=== PATIENT | male | born 1960 | race Caucasian/White ===

== ENCOUNTER 2018-03-15 06:23 | Day surgery (SDC) | payer OTHER ==
[2018-03-15] MEDS ORDERED: ATROPINE SULFATE 1 MG/10 ML SYR IVP ONE (06:26)
[2018-03-15] MEDS ORDERED: NS 1,000 ML IV ONE (06:26)
--- NOTE | 2018-03-15 06:44 | CPEKG ---
Heart Rate: 75 RR Interval: 800 QRSD Interval: 72 QT Interval: 380 QTC Interval: 425 QRS [place]: 14 T Wave [place]: 32 EKG Severity - ABNORMAL ECG - EKG Impression: ATRIAL FIBRILLATION, V-RATE 60-89 Electronically Signed By: Ben Pryor 15-Mar-2018 07:34:46
[2018-03-15 07:10] LABS: INR 1.06 (0.83-1.16)
--- NOTE | 2018-03-15 07:47 | PDANEPAE ---
ANE Past Medical History - Cardiovascular History Hx Arrhythmias: Yes - Pulmonary History Hx Sleep Apnea: No ANE Review of Systems Review of Systems: ANE Patient History - Allergies Allergies/Adverse Reactions: No Known Allergies Allergy (Verified 03/14/18 16:51) - Home Medications Home Medications: Aspirin 325 mg PO DAILY 03/15/18 [Last Taken 03/15/18 06:00] Belsomra 20 mg PO HS PRN 03/15/18 [Last Taken 03/14/18 21:00] Crestor 5 mg PO DAILY 03/15/18 [Last Taken 03/14/18 21:00] Eliquis 5 mg pe PO Q12 03/15/18 [Last Taken 03/15/18 06:00] Fish Oil Concentrate Softgel 1,000 mg PO DAILY 03/15/18 [Last Taken 03/14/18 21: 00] Lunesta 3 mg PO HS PRN 03/15/18 [Last Taken Unknown] Niacin 1,000 mg PO DAILY 03/15/18 [Last Taken 03/14/18 06:00] Quetiapine Fumarate 100 mg PO HS 03/15/18 [Last Taken 03/14/18 21:00] Toprol Xl 25 mg PO DAILY 03/15/18 [Last Taken 03/15/18 06:00] Vyvanse 20 mg PO DAILY 03/15/18 [Last Taken 03/14/18 06:00] - Smoking Hx Smoking Status: Never smoked ANE Labs/Vital Signs - Labs Result Diagrams: 03/15/18 06:50 03/15/18 06:50 - Vital Signs Height: 186.2 cm Weight: 93.8 kg ANE Physical Exam - Airway Mallampati Score: Class 2 - ASA Status ASA Status: III ANE Anesthesia Plan Total IV Anesthesia: Yes
[2018-03-15] MEDS ORDERED: PROPOFOL 200 MG/20 ML VIAL ONE (07:49)
--- NOTE | 2018-03-15 07:54 | PDHPUP ---
History & Physical Update H&P update statement: This history and physical update is based on an assessment of the patient which was completed after admission or registration (within 24 hours), but prior to the surgery/procedure. H&P update: H&P reviewed & patient examined, no change in patient's condition since H&P completed
[2018-03-15] MEDS ORDERED: NS 500 ML IV PRN (08:13)
[2018-03-15] MEDS ORDERED: fentaNYL 100 MCG/2 ML INJ IVP PRN (08:13)
[2018-03-15] MEDS ORDERED: NALOXONE HCL 0.4 MG/ML INJ IVP PRN (08:13)
[2018-03-15] MEDS ORDERED: ONDANSETRON 4 MG/2 ML VIAL IVP PRN (08:13)
--- NOTE | 2018-03-15 08:14 | POSTANESTH ---
Post Anesthetic Evaluation Cardiovascular Status: Normal, Stable Respiratory Status: Normal, Stable Level of Consciousness/Mental Status: Mildly Sleepy, Arousable Pain Control: Adequate, Prn Tx Ordered Nausea/Vomiting Control: Adequate, Prn Tx Ordered Complications Possibly Related to Anesthesia: None Noted
--- NOTE | 2018-03-15 08:20 | CPEKG ---
Heart Rate: 75 RR Interval: 800 P-R Interval: 152 QRSD Interval: 78 QT Interval: 392 QTC Interval: 438 P [place]: 41 QRS [place]: 10 T Wave [place]: 31 EKG Severity - NORMAL ECG - EKG Impression: SINUS RHYTHM Electronically Signed By: Ben Pryor 16-Mar-2018 09:27:18
== END 2018-03-15 09:48 | disposition home or self-care (01) ==
LOC: FCATH 06:23
PROVIDERS: ATTEND Internal Medicine Cardiovascular Disease
DX: I48.91 Unspecified atrial fibrillation (principal); I25.10 Atherosclerotic heart disease of native coronary artery without angina pectoris; R55 Syncope and collapse; R53.83 Other fatigue; E78.5 Hyperlipidemia, unspecified; G47.00 Insomnia, unspecified; Z79.01 Long term (current) use of anticoagulants; Z79.82 Long term (current) use of aspirin
CPT/HCPCS: J2704

== ENCOUNTER 2018-07-23 06:59 | Observation (INO) | payer OTHER ==
[2018-07-23] MEDS ORDERED: NS 1,000 ML IV ONE (07:02)
[2018-07-23 07:38] LABS: PLATELET COUNT 191 10^3/uL (150-400)
[2018-07-23 07:46] LABS: INR 0.96 (0.83-1.16)
[2018-07-23] MEDS ORDERED: LIDOCAINE 1% 300 MG/30 ML SDV ONE (08:02)
[2018-07-23] MEDS ORDERED: HEPARIN/DEXTROSE 25,000 UNIT/500 ML BAG ONE (08:02)
[2018-07-23] MEDS ORDERED: HEPARIN 10,000 UNIT/10 ML MDV (1,000 UNIT/ML) ONE (08:02)
[2018-07-23] MEDS ORDERED: BUPIVACAINE 0.75% 10 ML SDV ONE (08:03)
[2018-07-23] MEDS ORDERED: ISOPROTERENOL HCL/D5W 0.2 MG/50 ML BAG IV ONE (08:03)
[2018-07-23] MEDS ORDERED: IOPAMIDOL (ISOVUE-300) 100 ML BTL ONE (08:04)
[2018-07-23] MEDS ORDERED: MIDAZOLAM 2 MG/2 ML VIAL IVP ONE (08:27)
--- NOTE | 2018-07-23 08:27 | PDANEPAE ---
ANE History of Present Illness here for EPS and PVI for AF ANE Past Medical History - Cardiovascular History Hx Arrhythmias: Yes Hx Chest Pain: No Hx Coronary Artery / Peripheral Vascular Disease: No Hx CHF / Valvular Disease: No Hx Palpitations: No - Pulmonary History Hx COPD: No Hx Asthma/Reactive Airway Disease: No Hx Recent Upper Respiratory Infection: No Hx Oxygen in Use at Home: No Hx Sleep Apnea: No - Neurologic History Hx Cerebrovascular Accident: No Hx Seizures: No Hx Dementia: No - Endocrine History Hx Diabetes: No Hypothyroid: No Hyperthyroid: No Obesity: no - Renal History Hx Renal Disorders: No ANE Review of Systems Review of systems is: negative Review of Systems: - Exercise capacity Exercise capacity: >=4 METS ANE Patient History - Allergies Allergies/Adverse Reactions: No Known Allergies Allergy (Verified 03/14/18 16:51) - Home Medications Home medications: home medication list seen and reviewed Home Medications: Apixaban [Eliquis] 5 mg PO BID 03/15/18 [Last Taken 07/20/18 07:00] Eszopiclone [Lunesta] 3 mg PO HS PRN 03/15/18 [Last Taken Unknown] Lisdexamfetamine Dimesylate [Vyvanse] 20 mg PO DAILY 03/15/18 [Last Taken 07:00] Metoprolol Succinate Xr [Toprol Xl 50 mg (*)] 50 mg PO DAILY 03/15/18 [Last Taken 07/20/18 07:00] Niacin [Niacin 500 mg (*)] 500 mg PO HS 03/15/18 [Last Taken 03/14/18 06:00] QUEtiapine FUMARATE [Seroquel 100 mg (*)] 100 mg PO HS 03/15/18 [Last Taken 21:00] Rosuvastatin Calcium [Crestor] 5 mg PO HS 03/15/18 [Last Taken 07/22/18 21:00] Herbals/Supplements -Info Only 1 ea PO DAILY 05/16/18 [Last Taken Unknown] [place]-3 Fatty Acids [Fish Oil 1000 mg (*)] 1,000 mg PO DAILY 07/16/18 [Last Taken 07/21/18 07:00] Omeprazole 20 mg PO DAILY 07/16/18 [Last Taken 07/22/18 07:00] buPROPion [Wellbutrin 100mg (*)] 200 mg PO BID 07/16/18 [Last Taken 07/22/18 13: 30] - NPO status NPO Status: no food or drink >8 hours - Smoking Hx Smoking Status: Never smoked ANE Labs/Vital Signs - Labs Result Diagrams: 07/23/18 07:30 07/23/18 07:30 - Vital Signs Vital Signs: reviewed preoperatively; see RN documention for details Height: 187.96 cm Weight: 90.718 kg ANE Physical Exam - Airway Neck exam: FROM Mallampati Score: Class 1 Mouth exam: normal dental/mouth exam - Pulmonary Pulmonary: no respiratory distress - Cardiovascular Cardiovascular: regular rate and rhythym - ASA Status ASA Status: II ANE Anesthesia Plan Anesthesia Plan: general endotracheal anesthesia
[2018-07-23] MEDS ORDERED: MIDAZOLAM 2 MG/2 ML VIAL ONE (08:38)
--- NOTE | 2018-07-23 08:42 | PDGENHP ---
History & Physical Chief Complaint: symptomatic afib Relevant Physical Exam: s1s2 rrr cta ao3 Cardiorespiratory Assessment: symptomatic afib for ablation
[2018-07-23] MEDS ORDERED: fentaNYL 100 MCG/2 ML INJ ONE ×2 (08:53→10:13)
[2018-07-23] MEDS ORDERED: PROPOFOL/EMULSION 500 MG/50 ML BOTTLE IV ONE ×2 (08:54→10:08)
[2018-07-23] MEDS ORDERED: PROPOFOL 200 MG/20 ML VIAL ONE (09:09)
[2018-07-23] MEDS ORDERED: PROTAMINE SULFATE 50 MG/5 ML VIAL IVP ONE (10:42)
--- NOTE | 2018-07-23 10:49 | EPPROC ---
Electrophysiology Procedure Note: ELECTROPHYSIOLOGIC STUDY AND BALLOON-CATHETER MEDIATED CRYOABLATION FOR PAROXYSMAL ATRIAL FIBRILLATION Procedures performed: 98465-24 EP evaluation with RA/RV/LA pace/record, with arrhythmia induction 90610-52 EP evaluation with RA/RV pace record, insert/reposition catheter, with arrhythmia induction 05092 Atrial fibrillation ablation Intracardiac echocardiogram Transseptal puncture Fluoroscopy INDICATION: Paroxysmal atrial fibrillation PROCEDURE: The patient arrived in the Electrophysiology Laboratory in the fasting state. The right groin, left groin and right infraclavicular area were prepped and draped in the usual sterile fashion. Anesthesiologist administered general anesthesia Dr. Brionna Moran . All catheters were placed percutaneously using the Seldinger technique and advanced into position under fluoroscopic guidance. One #7 Macedonian deflectable octapolar electrode catheter was placed in the His-bundle position via the left femoral vein (2mm spacing, IVC electrode for unipolar recordings). This catheter was placed in the coronary sinus after transseptal puncture and later placed in the SVC-R subclavian vein junction to pace the right phrenic nerve during right pulmonary vein ablation. One #8 [place] AcuNaV ultrasound catheter was placed in the left femoral vein and advanced into the right atrium. One #4 [place]onian sheath was inserted into the left femoral artery via percutaneous technique and used for continuous arterial blood pressure monitoring and intermittent ACT determination. Programmed stimulation was performed from the right atrium, left atrium (CS) and right ventricle. There was no evidence of AV accessory pathway. Intracardiac echo evaluation of the left atrium and pulmonary veins was performed. Baseline ACT was drawn and heparin bolus was administered and heparin drip was started prior to transseptal puncture. ACT was checked every 15 minutes and maintained in the range of 350-400 seconds. One 14Fr short sheath was placed in the right femoral vein. One 8Fr SL1 sheath was advanced into the right atrium via the 14Fr short sheath. Transseptal puncture was performed under intracardiac ultrasound, fluoroscopic and hemodynamic guidance placing the sheath into the left atrium. Fortine RF needle ( C0 curve) was used. The mean left atrial pressure was 10 mmHg. 3D map of left atrial and pulmonary veins was performed using PentaRay catheter. The SL1 sheath was exchanged for a Medtronic Flexcath sheath using an Amplatz stiff guide wire. A 28 mm Cryoballoon catheter with a 20 mm Achieve catheter was placed via the sheath into the left atrium. Intracardiac ultrasound and PV angiograms were used to assist in placing the mapping catheter at the antrum of the pulmonary veins. All pulmonary veins were isolated successfully using cryoballoon ablation using freeze/thaw/freeze cycles at 2-3-minute intervals, with good [id number] of isolation. Coumadin ridge/Ligament of [place] region was ablated. Pre and post pulmonary vein recordings were measured on the spiral Achieve catheter to ensure complete pulmonary vein isolation. During the right-sided ablation, phrenic nerve pacing was performed to assess the phrenic nerve strength ( manually and with ICE visualization of liver movement during phrenic capture) and the phrenic nerve was intact throughout the right-sided ablation and at the end of the procedure. An esophageal temperature probe (12 electrode, Circa) was placed by the anesthesiologist at the beginning of the procedure. Esophageal temperature was monitored continuously and cryoablation was interrupted if esophageal temperature was <15 C. Cryoapplications 5 total cryoablation time 900 s. ICE imaging post ablation was consistent with pre ablation imaging with no changes noted, moreover there was no left atrial/left ventricular thrombus and no pericardial effusion. The catheters were withdrawn. Protamine was given. The sheaths were removed and subcutaneous pursestring suture and manual pressure was used for hemostasis. The patient was recovered from anesthesia. There were no complications. The patient was arousable and moving all four extremities at the end of the procedure. CONCLUSIONS: 1. Paroxysmal atrial fibrillation. 2. Successful pulmonary vein isolation procedure (left and right pulmonary vein antrum) using cryoballoon ablation. 3. No apparent complications. Patient Problems: Problems Problem Status Onset Atrial fibrillation Acute
[2018-07-23] MEDS ORDERED: ZOLPIDEM TARTRATE 5 MG TAB PO PRN (11:18)
[2018-07-23] MEDS ORDERED: KETOROLAC 15 MG/1 ML SDV IVP ONE (12:00)
[2018-07-23] MEDS: buPROPion 100 MG TAB PO SCH ×2 (12:35→21:12)
[2018-07-23] MEDS: APIXABAN 5 MG TAB PO SCH ×2 (17:04→19:02)
--- NOTE | 2018-07-23 17:47 | CPEKG ---
Test Reason : OPEN Blood Pressure : / mmHG Vent. Rate : 073 BPM Atrial Rate : 071 BPM P-R Int : 142 ms QRS Dur : 080 ms QT Int : 386 ms P-R-T Axes : 038 038 069 degrees QTc Int : 426 ms Sinus rhythm Confirmed by oTrey Majano ([id number]) on 07/23/2018 5:47:40 PM Referred By: Confirmed By:Torey Majano
--- NOTE | 2018-07-23 17:50 | CPEKG ---
Test Reason : OPEN Blood Pressure : / mmHG Vent. Rate : 089 BPM Atrial Rate : 089 BPM P-R Int : 141 ms QRS Dur : 081 ms QT Int : 367 ms P-R-T Axes : 038 010 046 degrees QTc Int : 447 ms Sinus rhythm Confirmed by Torey Majano ([id number]) on 07/23/2018 5:50:04 PM Referred By: Confirmed By:Torey Majano
[2018-07-23] MEDS: ACETAMINOPHEN 325 MG TAB PO PRN (19:50)
[2018-07-23] MEDS ORDERED: QUEtiapine FUMARATE 100 MG TAB PO SCH (21:00)
[2018-07-23] MEDS ORDERED: ROSUVASTATIN CALCIUM 10 MG TAB PO SCH (21:00)
[2018-07-23] MEDS ORDERED: NIACIN 500 MG TAB PO SCH (21:00)
[2018-07-24] MEDS: ACETAMINOPHEN 325 MG TAB PO PRN (05:42)
[2018-07-24 05:50] LABS: PLATELET COUNT 168 10^3/uL (150-400)
[2018-07-24] MEDS: APIXABAN 5 MG TAB PO SCH (08:05)
[2018-07-24] MEDS: buPROPion 100 MG TAB PO SCH (08:06)
[2018-07-24] MEDS ORDERED: METOPROLOL SUCCINATE XR 50 MG TAB PO SCH (09:00)
[2018-07-24] MEDS ORDERED: PANTOPRAZOLE SODIUM 40 MG TAB PO SCH (09:00)
[2018-07-24] MEDS ORDERED: OMEGA-3 FATTY ACIDS 1,000 MG CAP PO SCH (09:00)
[2018-07-24] MEDS ORDERED: Lisdexamfetamine Dimesylate [Vyvanse] 20 MG PO SCH (09:00)
[2018-07-24 11:03] VITALS: BP 134/78
--- NOTE | 2018-07-24 14:36 | ECHO ---
[email or web address] [address] [address] Main: [phone] Fax: Transthoracic Echocardiogram Name: CHESTER BENÍTEZ MR#: [id number] Study Date: 07/24/2018 Study Time: 07:29 AM Date of : 1960 Age: 57 year(s) Height: 188 cm (74 in.) Weight: 90.72 kg (200 lb.) BSA: 2.17 m2 Gender: Male Examination: Echo Indication: F/U Post EP Study Image Quality: Adequate Contrast: Requested by: Torey Majano BP: 143 mmHg/73 mmHg Heart Rate: Rhythm: Indication: F/U Post EP Study Procedure Staff Multiple Needle Stitcher: Jolynn Cervantes RDCS Reading Physician: Kris Magallanes MD Requesting Provider: Conclusions: Normal size left ventricle. Normal global systolic LV function. EF is 62 %. No regional wall motion abnormality. Normal diastolic LV function. Mild mitral valve regurgitation is present. Aortic sclerosis is present. There is no significant aortic valve regurgitation. No aortic valve stenosis is present. Mild tricuspid regurgitation is present. Right ventricular systolic pressure measures 32mmHg. Trivial pericardial effusion seen below right atrium. Compared to 04/11/2018, a trivial pericardial effusion is now present. Measurements: Chambers Valvular Assessment AV/MV Valvular Assessment TV/PV Normal Normal Normal Name Value Range Name Value Range Name Value Range Ao [place] (2D): 3.5 cm (1.4 cm-2.6 AV Vmax: 1.58 m/s (1 m/s-1.7 TR Vmax: 2.61 mm/s ( - ) cm) m/s) TR PGmax: 27 mmHg ( - ) IVSd (2D): 1.0 cm (0.6 cm-1.1 AV maxP mmHg ( - ) syst. PAP: 32 mmHg ( - ) cm) AV meanP mmHg ( - ) PV Vmax: 0.94 m/s (0.6 m/s-0.9 LVDd (2D): 4.1 cm (4.2 cm-5.9 VANIA (VTI): 2.3 cm ( - ) m/s) cm) MV E Vmax: 0.72 m/s ( - ) PV PGmax: 4 mmHg ( - ) LVDs (2D): 2.7 cm (2.1 cm-4 MV A Vmax: 0.58 m/s ( - ) cm) MV E/A: 1.24 ( - ) LVPWd (2D): 1.0 cm (0.6 cm-1 cm) MV PHT: 0.067 s ( - ) LVOTd 2.0 cm 2.0 cm mm MVA (PHT): 3.3 s ( - ) LVEF (BP): 62 % (>=55 %) Patient: CHESTER BENÍTEZ Study Date: 07/24/2018 Page 1 of 2 07:29 AM RVDd(2D): 2.6 cm (1.9 cm-3.8 cmmm) Continued Measurements: Chambers Valvular Assessment AV/MV Valvular Assessment TV/PV Name Value Name Value Name Value LADs: 3.6 cm MV DecTime: 211 m/s CVP (est.): 5 mmHg LADs Lon.9 cm MV E' Septal: 0.08 m/s LA Area: 15.4 cm2 MV E/E' Septal: 8.90 LA Volume: 37 ml MV E/E' Lateral: 6.50 LA Volume Index: 17.1 ml/m2 RA Area: 15.5 cm2 Additional Vessels Name Value Ao Ascendin.9 cm Inferior Vena Cava: 1.4 cm Findings: Left Ventricle: Normal size left ventricle. No LV hypertrophy. Normal global systolic LV function. EF is 62 %. No regional wall motion abnormality. Normal diastolic LV function. Right Ventricle: Normal size right ventricle. Normal RV function. Left Atrium: The left atrium is normal in size. Right Atrium: The right atrium is normal in size. Mitral Valve: The mitral valve is normal in appearance and function. Mild mitral valve regurgitation is present. No mitral stenosis is present. Aortic Valve: The aortic valve is tri-leaflet. Aortic sclerosis is present. There is no significant aortic valve regurgitation. No aortic valve stenosis is present. Tricuspid Valve: The tricuspid valve is normal in appearance and function. Mild tricuspid regurgitation is present. The pulmonary artery pressure is normal. Right ventricular systolic pressure measures 32mmHg. Pulmonic Valve: The pulmonic valve is normal in appearance and function. Trivial pulmonic valve regurgitation. Aorta: The aorta is normal. Normal size aortic root measuring 3.5 cm. Normal size ascending aorta measuring 2.9 cm. IVC: The IVC is normal sized. Pericardium: Trivial pericardial effusion seen below right atrium. (No Signature Object) Patient: CHESTER BENÍTEZ Study Date: 07/24/2018 Page 2 of 2 07:29 AM [id number]
--- NOTE | 2018-07-24 15:39 | GDS ---
DISCHARGE DIAGNOSES: 1. Paroxysmal atrial fibrillation, status post electrophysiologic study with successful pulmonary ve in isolation procedure with isolating the left and right pulmonary vein antrum using cryoballoon. 2. Dyslipidemia. 3. History of insomnia. PROCEDURES: 1. 07/23/2018, EP study with cryoballoon ablation. 2. 07/24/2018, echo with EF of 62%, mild MR, mild TR, RVSP of 32. Trivial pericardial effusion seen below the right atrium. BRIEF HISTORY: Please see dictated H and P by Dr. Majano for complete details. In brief, the patient i s a 57-year-old male with paroxysmal atrial fibrillation, with symptoms first starting in October of 2017. Options of management of this were reviewed, and patient preferred to proceed to ablation, whi ch was done on 07/23/2018. On day of discharge, patient denies any groin pain, chest pain, or dyspne a. PHYSICAL EXAM: VITAL SIGNS: On day of discharge, blood pressure of 134/78, heart rate 95, respirati ons 18, O2 saturation 94% on room air, temp of 98.2 degrees Fahrenheit. GENERAL: He is a very pleas ant man in no apparent distress. HEENT: Head is normocephalic, atraumatic. Eyes are without sclera l icterus. HEART: Regular rate and rhythm. LUNGS: Clear. SKIN: Bilateral groin sites without ec chymosis or erythema. Groin sutures were removed uneventfully. LABORATORY DATA: CBC with WBC 9.05, hemoglobin 14.9, hematocrit 41.9, platelet count of 168. BMP wa s sodium 136, potassium 4.2, chloride 104, CO2 24, BUN 14, creatinine 0.7, glucose 97. Troponin of 9 .99, consistent with recent ablation procedure. RESULTS PENDING: None. DIET: Per previous. ACTIVITY: Groin precautions reviewed. DISCHARGE MEDICATIONS: Please see med reconciliation. All his home medications were continued witho ut change. This includes rosuvastatin, Seroquel, apixaban, omega-3 fatty acids, metoprolol succinate , Vyvanse, Wellbutrin, omeprazole, niacin, and Lunesta. DISCHARGE INSTRUCTIONS: 1. Groin precautions. 2. Follow up with Dr. Majano in 1 month's time as scheduled. /[id number]/MODL
--- NOTE | 2018-07-25 06:12 | CPEKG ---
Test Reason : OPEN Blood Pressure : / mmHG Vent. Rate : 110 BPM Atrial Rate : 109 BPM P-R Int : 149 ms QRS Dur : 067 ms QT Int : 263 ms P-R-T Axes : 014 006 049 degrees QTc Int : 356 ms Sinus tachycardia Borderline T wave abnormalities Confirmed by Torey Majano ([id number]) on 07/25/2018 6:11:29 AM Referred By: Confirmed By:Torey Majano
== END 2018-07-24 12:25 | disposition home or self-care (01) ==
LOC: FCATH 06:59 → F2N 10:49
PROVIDERS: ADMIT Internal Medicine Cardiovascular Disease; ATTEND Internal Medicine Cardiovascular Disease
DX: I48.0 Paroxysmal atrial fibrillation (principal); E78.5 Hyperlipidemia, unspecified; Z23 Encounter for immunization
CPT/HCPCS: 90471; 93005; 93306; 93312; 93613; 93621; 93656; 93662; C1893; G0378; C1730; C1731; C1732; C1733; C1759; C1766; G0008; J1644; J1885; J2250; J2704; J2720; J3010; Q9967

== ENCOUNTER 2018-12-04 07:03 | Day surgery (SDC) | payer OTHER ==
[2018-12-04] MEDS ORDERED: MIDAZOLAM 2 MG/2 ML VIAL IVP ONE (07:05)
[2018-12-04] MEDS ORDERED: NS 500 ML IV ONE (07:05)
[2018-12-04] MEDS ORDERED: BENZOCAINE UNIT DOSE SPRAY HURRICAINE MM ONE (07:05)
[2018-12-04] MEDS ORDERED: fentaNYL 100 MCG/2 ML INJ IVP ONE (07:05)
--- NOTE | 2018-12-04 08:13 | PDANEPAE ---
ANE Past Medical History - Cardiovascular History Hx Arrhythmias: Yes Hx Chest Pain: No Hx Coronary Artery / Peripheral Vascular Disease: No Hx CHF / Valvular Disease: No Hx Palpitations: No - Pulmonary History Hx COPD: No Hx Asthma/Reactive Airway Disease: No Hx Recent Upper Respiratory Infection: No Hx Oxygen in Use at Home: No Hx Sleep Apnea: No - Neurologic History Hx Cerebrovascular Accident: No Hx Seizures: No Hx Dementia: No - Endocrine History Hx Diabetes: No - Renal History Hx Renal Disorders: No ANE Review of Systems Review of Systems: ANE Patient History - Allergies Allergies/Adverse Reactions: No Known Allergies Allergy (Verified 03/14/18 16:51) - Home Medications Home Medications: Apixaban [Eliquis] 5 mg PO BID 03/15/18 [Last Taken 07/20/18 07:00] Eszopiclone [Lunesta] 3 mg PO HS PRN 03/15/18 [Last Taken Unknown] Lisdexamfetamine Dimesylate [Vyvanse] 20 mg PO DAILY 03/15/18 [Last Taken 07:00] Metoprolol Succinate Xr [Toprol Xl 50 mg (*)] 50 mg PO DAILY 03/15/18 [Last Taken 07/20/18 07:00] Niacin [Niacin 500 mg (*)] 500 mg PO HS 03/15/18 [Last Taken 03/14/18 06:00] QUEtiapine FUMARATE [Seroquel 100 mg (*)] 100 mg PO HS 03/15/18 [Last Taken 21:00] Rosuvastatin Calcium [Crestor] 5 mg PO HS 03/15/18 [Last Taken 07/22/18 21:00] Herbals/Supplements -Info Only 1 ea PO DAILY 05/16/18 [Last Taken Unknown] [place]-3 Fatty Acids [Fish Oil 1000 mg (*)] 1,000 mg PO DAILY 07/16/18 [Last Taken 07/21/18 07:00] Omeprazole 20 mg PO DAILY 07/16/18 [Last Taken 07/22/18 07:00] buPROPion [Wellbutrin 100mg (*)] 200 mg PO BID 07/16/18 [Last Taken 07/22/18 13: 30] - Smoking Hx Smoking Status: Never smoked ANE Labs/Vital Signs - Vital Signs Height: 185.42 cm Weight: 91.626 kg ANE Physical Exam - Airway Neck exam: FROM Mallampati Score: Class 2 Mouth exam: normal dental/mouth exam - Pulmonary Pulmonary: no respiratory distress, no rales or rhonchi, clear to auscultation - Cardiovascular Cardiovascular: regular rate and rhythym, no murmur, rub, or gallop - ASA Status ASA Status: II ANE Anesthesia Plan Anesthesia Plan: GA with mask Total IV Anesthesia: Yes
--- NOTE | 2018-12-04 08:26 | POSTANESTH ---
Post Anesthetic Evaluation Cardiovascular Status: Normal, Stable Respiratory Status: Normal, Stable Level of Consciousness/Mental Status: Can Participate in Eval Pain Control: Adequate, Prn Tx Ordered Nausea/Vomiting Control: Adequate, Prn Tx Ordered Complications Possibly Related to Anesthesia: None Noted
[2018-12-04] MEDS ORDERED: ATROPINE SULFATE 1 MG/10 ML SYR ONE (08:32)
--- NOTE | 2018-12-04 08:45 | PDGENHP ---
History & Physical History of Present Illness: Left toe necrosis Relevant Physical Exam: A&Ox4, no apparent distress, lungs CTA, cardiac regular rate and rhythm Cardiorespiratory Assessment: CINDY to check for thromboembolic source
== END 2018-12-04 11:11 | disposition home or self-care (01) ==
LOC: FCATH 07:03
PROVIDERS: ATTEND Internal Medicine Cardiovascular Disease
PROC: B246ZZ4 Ultrasonography of Right and Left Heart, Transesophageal (ICD-10-PCS; principal; 2018-12-04)
DX: I48.0 Paroxysmal atrial fibrillation (principal); I96 Gangrene, not elsewhere classified; I25.10 Atherosclerotic heart disease of native coronary artery without angina pectoris; E78.5 Hyperlipidemia, unspecified; Z79.01 Long term (current) use of anticoagulants
CPT/HCPCS: J0461

== ENCOUNTER → 2019-01-15 | Outpatient (CLI) | payer OTHER | LOC: FIMAGING 07:57 | PROVIDERS: ATTEND Internal Medicine Hematology & Oncology | DX: D47.2 Monoclonal gammopathy (principal) ==